=== PATIENT | female | born 1940 | race Caucasian/White ===

== ENCOUNTER 2016-11-24 09:40 | Day surgery (SDC) | payer MEDICARE ==
[~2016-11-24] VITALS: Ht 160 cm; Wt 70.0 kg
[~2016-11-24 09:40] MED LIST: ALPR0.25 PO; ASCO500T7 PO; CHOL10008 PO; CYAN500 PO; FEXO1TAB4 PO; FLUO20CA25 PO; IBUP200C PO; LISI1TAB7 PO; PNV1TABL9 PO; Sodium Chloride LOK Flush 10 mL Syringe IV PRN; TRAZ-118 PO; fentaNYL-PF 50 mCg/mL 2 mL Inj IVPUSH PRN
[2016-11-24 10:00] VITALS: BP 134/76; PULSE 69; RESP 16; O2SAT 95
[2016-11-24] MEDS: 0.9% Sodium Chloride 1,000 ML IV SCH ×2 (10:04→10:23)
[2016-11-24 10:53] VITALS: BP 110/64; PULSE 70; RESP 16; O2SAT 96
[2016-11-24 11:00] VITALS: BP 110/66; PULSE 64; RESP 16; O2SAT 96
--- NOTE | 2016-11-24 11:07 | ENDO ---
[address] [address] ENDOSCOPY PROCEDURE PATIENT: SHELBIE RUIZ : 1940 MR#: [id number] ADMIT: 11/24/2016 JOB ID: [id number] DATE OF SERVICE: 11/24/2016 PROCEDURE PERFORMED: Flexible sigmoidoscopy. INDICATION: Rectal bleeding. The patient is a 76-year-old woman, who performed a colonoscopy for screening in April 2015. However, secondary to a tortuous colon, we were unable to complete the colonoscopy and patient was subsequently referred for a barium enema, which was unremarkable. She then re-presented back to clinic in late 2015, with complaints of intermittent rectal bleeding. Therefore, a flexible sigmoidoscopy was scheduled. However, since her clinic visit with me, she has had no further rectal bleeding. INSTRUMENT USED: GIF-H180J. MEDICATIONS: 1. Versed 2 mg. 2. Fentanyl 75 mcg. PREPARATION QUALITY: Adequate. PROCEDURE DETAILS: After informed consent was obtained, the patient was brought into the GI suite, where she was placed on oxygen via nasal cannula and monitored with continuous pulse oximeter, telemetry and blood pressure monitoring. A time-out was performed. Then, she was placed in the left lateral decubitus position and medications were administered for sedation. A digital rectal exam was performed, which did not reveal any evidence of any external hemorrhoids. The flexible upper endoscope was then inserted into the rectum and advanced without difficulty to approximately 35-40 cm. Beyond this point, I was unable to advance the scope secondary to solid stool, which was obscuring the lumen. At this point, the colonoscope was withdrawn gradually and the mucosa and lumen were examined. In the rectum, retroflexion was performed. Following retroflexion, remaining air in the rectum was suctioned, and procedure was completed. FINDINGS: 1. A few scattered diverticula were noted in the sigmoid colon. 2. Retroflexed views in the rectum revealed small internal hemorrhoids. IMPRESSION: 1. Scattered sigmoid diverticula. 2. Small internal hemorrhoids. RECOMMENDATIONS: Stool softeners as needed. If report of recurrent bleeding occurs, trial of Anusol HC suppositories. COMPLICATIONS: None. ESTIMATED BLOOD LOSS: Zero.
[2016-11-24 11:10] VITALS: BP 126/69; PULSE 66; RESP 16; O2SAT 95
[2016-11-24 11:19] VITALS: BP 124/60; PULSE 67; RESP 16; O2SAT 94
== END 2016-11-24 23:59 | disposition home or self-care (01) ==
LOC: END 09:40
PROVIDERS: ATTEND Internal Medicine Gastroenterology
DX: K57.30 Diverticulosis of large intestine without perforation or abscess without bleeding (principal); K64.8 Other hemorrhoids; K62.5 Hemorrhage of anus and rectum; Z79.899 Other long term (current) drug therapy; Z87.891 Personal history of nicotine dependence
CPT/HCPCS: 45330; J2250; J7030